=== PATIENT | female | born 1970 | race Caucasian/White ===

== ENCOUNTER 2021-03-20 07:46 | Outpatient (CLI) | payer BC | END 2021-03-20 07:47 | disposition home or self-care (01) | LOC: CSHMAMMO 07:46 | PROVIDERS: ATTEND Internal Medicine | DX: Z12.31 Encounter for screening mammogram for malignant neoplasm of breast (principal); Z80.3 Family history of malignant neoplasm of breast | CPT/HCPCS: 77063; 77067 ==

== ENCOUNTER 2021-04-03 11:22 | Outpatient (CLI) | payer BC ==
[2021-04-03 22:27] LABS: SARS-CoV-2 PCR by NAA Not Detected (NotDetected)
== END 2021-04-03 11:23 | disposition home or self-care (01) ==
LOC: CSHLAB 11:22
PROVIDERS: ATTEND Internal Medicine Gastroenterology
DX: Z20.822 Contact with and (suspected) exposure to COVID-19 (principal); Z12.11 Encounter for screening for malignant neoplasm of colon
CPT/HCPCS: U0003; U0005

== ENCOUNTER 2021-04-06 06:44 | Day surgery (SDC) | payer BC ==
[2021-04-03 14:16] VITALS: BMI 29.8
[2021-04-06] MEDS ORDERED: Lidocaine 1% MPF 2 ML VIAL ONE (08:16)
[2021-04-06] MEDS ORDERED: PROPOFOL 40 ML ONE (08:51)
[2021-04-06] MEDS ORDERED: Lidocaine 2% MPF 10 ML AMP (For Epidural Use) ONE (08:51)
== END 2021-04-06 10:03 | disposition home or self-care (01) ==
LOC: CSHSDC 06:44
PROVIDERS: ATTEND Internal Medicine Gastroenterology
PROC: 0DJD8ZZ Inspection of Lower Intestinal Tract, Via Natural or Artificial Opening Endoscopic (ICD-10-PCS; principal; 2021-04-06)
DX: Z12.11 Encounter for screening for malignant neoplasm of colon (principal); K21.9 Gastro-esophageal reflux disease without esophagitis; Z79.899 Other long term (current) drug therapy; E78.5 Hyperlipidemia, unspecified
CPT/HCPCS: J2704

== ENCOUNTER 2022-03-09 08:13 | Outpatient (CLI) | payer BC ==
[2022-03-09] MEDS ORDERED: Iopamidol 300 61% 100 ML VIAL FS ONE (11:32)
== END 2022-03-09 08:14 | disposition home or self-care (01) ==
LOC: CSHCT 08:13
PROVIDERS: ATTEND Internal Medicine
DX: R10.13 Epigastric pain (principal)
CPT/HCPCS: 74160

== ENCOUNTER 2022-05-14 07:52 | Outpatient (CLI) | payer BC | END 2022-05-14 07:53 | disposition home or self-care (01) | LOC: CSHMAMMO 07:52 | PROVIDERS: ATTEND Internal Medicine | DX: Z12.31 Encounter for screening mammogram for malignant neoplasm of breast (principal); Z80.3 Family history of malignant neoplasm of breast | CPT/HCPCS: 77063; 77067 ==

== ENCOUNTER 2022-10-22 09:15 | Outpatient (CLI) | payer OTHER | END 2022-10-22 09:16 | disposition home or self-care (01) | LOC: CSHCT 09:15 | PROVIDERS: ATTEND Internal Medicine | DX: E78.00 Pure hypercholesterolemia, unspecified (principal) | CPT/HCPCS: 75571 ==

== ENCOUNTER 2023-02-27 09:19 | Outpatient (CLI) | payer BC | END 2023-02-27 09:20 | disposition home or self-care (01) | LOC: CSHCT 09:19 | PROVIDERS: ATTEND Otolaryngology | DX: R42 Dizziness and giddiness (principal) | CPT/HCPCS: 70480 ==

== ENCOUNTER 2023-05-15 09:31 | Outpatient (CLI) | payer BC | END 2023-05-15 09:32 | disposition home or self-care (01) | LOC: CSHMAMMO 09:31 | PROVIDERS: ATTEND Internal Medicine | DX: Z12.31 Encounter for screening mammogram for malignant neoplasm of breast (principal); Z80.3 Family history of malignant neoplasm of breast | CPT/HCPCS: 77063; 77067 ==

== ENCOUNTER 2023-06-28 10:43 | Outpatient (CLI) | payer BC | END 2023-06-28 10:44 | disposition home or self-care (01) | LOC: CSHMAMMO 10:43 | PROVIDERS: ATTEND Internal Medicine | DX: Z13.820 Encounter for screening for osteoporosis (principal); Z78.0 Asymptomatic menopausal state; M85.851 Other specified disorders of bone density and structure, right thigh; M85.852 Other specified disorders of bone density and structure, left thigh | CPT/HCPCS: 77080 ==

== ENCOUNTER 2024-05-18 08:14 | Outpatient (CLI) | payer BC | END 2024-05-18 08:15 | disposition home or self-care (01) | LOC: CSHMAMMO 08:14 | PROVIDERS: ATTEND Internal Medicine | DX: Z12.31 Encounter for screening mammogram for malignant neoplasm of breast (principal); Z80.3 Family history of malignant neoplasm of breast | CPT/HCPCS: 77063; 77067 ==